=== PATIENT | female | born 1950 | race Caucasian/White ===

== ENCOUNTER 2021-10-27 10:20 | Emergency (ER) | payer OTHER, MEDICARE, SELFPAY ==
[2021-10-27 10:24] VITALS: BP 136/69; PULSE 92; RESP 20; TEMP 35.8; O2SAT 95; BMI 31.3
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
== END 2021-10-27 12:30 | disposition left against medical advice (07) ==
PROVIDERS: Emergency Provider Emergency Medicine
DX: S39.012A Strain of muscle, fascia and tendon of lower back, initial encounter (principal); V43.52XA Car driver injured in collision with other type car in traffic accident, initial encounter; Y93.89 Activity, other specified; Y92.414 Local residential or business street as the place of occurrence of the external cause; Y99.9 Unspecified external cause status
CPT/HCPCS: 99282